=== PATIENT | female | born 1985 | race Caucasian/White ===

== ENCOUNTER 2021-01-26 07:13 | Emergency (ER) | payer OTHER ==
[2021-01-26] MEDS ORDERED: Lidocaine/EPINEPHrine/Tetracaine Soln 1 ML TOP ONE (07:33)
--- NOTE | 2021-01-26 07:37 | EDM.PDOC ---
ED HPI GENERAL MEDICAL PROBLEM - General Chief Complaint: Skin Complaint Stated Complaint: BUMP ON RIGHT EAR Time Seen by Provider: 01/26/21 07:35 - History of Present Illness INITIAL COMMENTS - FREE TEXT/NARRATIVE: History of present illness: [] The patient has recurrent abscess or cyst in the right upper earlobe. She saw a fire hydrant mechanic a few days ago and he incised it for the second time. It reaccumulated. It is worse and bigger each time its been in size. She sees ear nose and throat in about 6 days in [place] but the pain is excruciating and she is worried about damage to her ear. She has children who rest well and she is familiar with the concept of cauliflower ear. Review of systems: As per history of present illness and below otherwise all systems reviewed and negative. Past medical history: As per history of present illness and as reviewed below otherwise noncontributory. Surgical history: As per history of present illness and as reviewed below otherwise noncontributory. Social history: No reported history of drug or alcohol abuse. Family history: As per history of present illness and as reviewed below otherwise noncontributory. Physical exam: Constitutional - well developed, well-nourished and in no acute distress HEENT -patient has a fullness in the upper part of the right earlobe. It takes up 40% of the surface of the anterior ear. abscess or cyst in her right ear. The upper lobe is swollen and anatomy of the circular superior margin is distorted secondary to same.Otherwise normocephalic, no evidence of trauma - external nose and mouth normal - no mass in neck and no JVD - mucosae moist EYES - full EOM, PERRL, no icterus - no evidence of inflammation, injection, or drainage Respiratory - no respiratory distress, equal bilateral expansion Musculoskeletal no gross deformity of long bones or joints - no tenderness, swelling or edema Neurologic - Alert and oriented times four - CN II-XII grossly intact - motor sensory and coordination symmetrically normal Psychiatric - appropriate mood and affect with normal thought content Hematologic - No petechiae or purpura - mucosa appropriate color and sclera not pale - normal nail bed color and refill Integument - no rash or evidence of trauma - normal turgor Diagnostics: [] Therapeutics: [] Impression: [] Plan: [] Definitive disposition and diagnosis as appropriate pending reevaluation and review of above. Treatments OBJECTS CONSERVATOR: Reports: Acetaminophen right ear Pain Score (Numeric/FACES): 4 - Related Data Allergies Allergy/AdvReac Type Severity Reaction Status Date / Time No Known Allergies Allergy Verified 01/26/21 07:30 Home Meds: Home Meds Acetaminophen/oxyCODONE [Percocet 325-5 MG] 1 - 2 each PO Q4H PRN #10 tab 01/26/21 [Rx] Dextroamphetamine [Dexedrine] 01/26/21 [History] cephALEXin [Keflex] 500 mg PO BID #14 cap 01/26/21 [Rx] ED ROS GENERAL - Review of Systems Review Of Systems: Comprehensive ROS is negative, except as noted in HPI. ED EXAM, SKIN/RASH Exam: See Below Text/Narrative:: My physical exam is in the HPI ED SKIN PROCEDURES - I&D Site: ear Skin Prep: Providone-Iodine (Betadine) Local Anesthesia: Lidocaine: 1% Plain Local Anesthetic Volume: 3cc Area Incised With: 11 Blade Drainage: Clear, Bloody Probed to Break Up Loculations: No Packed With: Other Progress/Comments: Gauze placed in the earlobe and the back of the ear and wrapped and compressed. Course - Vital Signs Last Recorded V/S: Last Vital Signs Temp 36.4 C 01/26/21 07:27 Pulse 78 01/26/21 07:27 Resp 18 01/26/21 07:27 BP 121/61 01/26/21 07:27 Pulse Ox 97 01/26/21 07:27 - Orders/Labs/Meds Meds: Medications Discontinued Medications Generic Name Dose Route Start Last Admin Trade Name Fabi PRN Reason Stop Dose Admin Lidocaine HCl 5 ml 01/26/21 07:34 01/26/21 07:41 Lidocaine 1% 5 Ml Sdv INJECT 01/26/21 07:35 5 ml ONETIME ONE Administration Lidocaine/Tetracaine 1 ml 01/26/21 07:33 01/26/21 07:41 Lidocaine/Epinephrine/Tetracaine Soln 1 Ml TOP 01/26/21 07:34 1 ml ONETIME ONE Administration Departure - Departure Time of Disposition: 08:13 Disposition: Home, Self-Care 01 Condition: Good Clinical Impression: Abscess - Discharge Information Prescriptions: cephALEXin [Keflex] 500 mg PO BID #14 cap Acetaminophen/oxyCODONE [Percocet 325-5 MG] 1 - 2 each PO Q4H PRN #10 tab PRN Reason: Pain (Severe 7-10) Instructions: Skin Abscess Referrals: iKm Hunter DO [Primary Care Provider] - Vidal Phelps MD [Ordering Only Provider] - Forms: ED Department Discharge Additional Instructions: Try to keep some pressure on the earlobe so it does not reaccumulate fluid and compress the cartilage. See ENT as soon as possible. [facility] [address] [place] [id number] [id number] The following information is given to patients seen in the emergency department who are being discharged to home. This information is to outline your options for follow-up care. We provide all patients seen in our emergency department with a follow-up referral. The need for follow-up, as well as the timing and circumstances, are variable depending upon the specifics of your emergency department visit. If you don't have a primary care physician on staff, we will provide you with a referral. We always advise you to contact your personal physician following an emergency department visit to inform them of the circumstance of the visit and for follow-up with them and/or the need for any referrals to a consulting specialist. The emergency department will also refer you to a specialist when appropriate. This referral assures that you have the opportunity for follow-up care with a specialist. All of these measure are taken in an effort to provide you with optimal care, which includes your follow-up. Under all circumstances we always encourage you to contact your private physician who remains a resource for coordinating your care. When calling for follow-up care, please make the office aware that this follow-up is from your recent emergency room visit. If for any reason you are refused follow-up, please contact the [facility] Department at and asked to speak to the emergency department charge nurse. Sepsis Event Note (ED) - Evaluation Sepsis Screening Result: No Definite Risk - Focused Exam Vital Signs: Vital Signs Temp Pulse Resp BP Pulse Ox 01/26/21 07:27 36.4 C 78 18 121/61 97
== END 2021-01-26 08:35 | disposition home or self-care (01) ==
LOC: MW.ED 07:13
DX: H66.41 Suppurative otitis media, unspecified, right ear (principal)
CPT/HCPCS: 10060; 99283-25

== ENCOUNTER 2022-08-23 08:19 | Day surgery (SDC) | payer OTHER ==
[~2022-08-23 08:19] MED LIST: Albuterol 0.083% 2.5 MG/3 ML Neb Soln NEB PRN; HYDROmorphone 1 MG/ML Syringe IVPUSH PRN; Lactated Ringers 1,000 ML IV SCH; Metoclopramide 10 MG/2 ML SDV IVPUSH PRN; Morphine 2 MG/ML SYRINGE IVPUSH PRN; Naloxone 0.4 MG/ML SDV IVPUSH PRN; Ondansetron 4 MG/2 ML SDV IVPUSH PRN; fentaNYL 50 MCG/ML SDV IVPUSH PRN
[2022-08-23] MEDS ORDERED: Lidocaine 2% 11 ML Jelly Filled Syringe ONE (08:57)
[2022-08-23] MEDS ORDERED: Lidocaine 2% 5 ML SDV ONE (08:57)
[2022-08-23] MEDS ORDERED: Propofol 200 MG/20 ML SDV ONE (08:57)
[2022-08-23] MEDS ORDERED: fentaNYL 100 MCG/2 ML SDV ONE (08:57)
[2022-08-23] MEDS ORDERED: Ketorolac 30 MG/ML SDV ONE (08:57)
[2022-08-23] MEDS ORDERED: Ondansetron 4 MG/2 ML SDV ONE (08:57)
[2022-08-23] MEDS ORDERED: Dexamethasone 4 MG/ML 5 ML MDV ONE (08:57)
[2022-08-23 09:16] LABS: CARBON DIOXIDE,CO2 28.7 mmol/L (21.0-32.0)
== END 2022-08-23 11:00 | disposition home or self-care (01) ==
LOC: MW.SDS 08:19
PROVIDERS: ATTEND Obstetrics & Gynecology
DX: N92.0 Excessive and frequent menstruation with regular cycle (principal); N88.2 Stricture and stenosis of cervix uteri; E66.9 Obesity, unspecified; F17.290 Nicotine dependence, other tobacco product, uncomplicated; Z68.33 Body mass index [BMI] 33.0-33.9, adult; Z79.899 Other long term (current) drug therapy; Z98.890 Other specified postprocedural states
CPT/HCPCS: 36415; 58563; 80053; 81025; 85027; A9270; J0131; J1100; J1885; J2405; J2704; J3010; J7120; J3490

== ENCOUNTER 2022-10-03 08:02 | Day surgery (SDC) | payer OTHER ==
[2022-10-03] MEDS: Lactated Ringers 1,000 ML IV SCH ×2 (08:30→14:59)
[2022-10-03] MEDS ORDERED: Ondansetron 4 MG/2 ML SDV IVPUSH PRN ×2 (09:00→13:17)
[2022-10-03] MEDS ORDERED: Morphine 2 MG/ML SYRINGE IVPUSH PRN (09:00)
[2022-10-03] MEDS ORDERED: Metoclopramide 10 MG/2 ML SDV IVPUSH PRN (09:00)
[2022-10-03] MEDS ORDERED: fentaNYL 50 MCG/ML SDV IVPUSH PRN (09:00)
[2022-10-03] MEDS ORDERED: Albuterol 0.083% 2.5 MG/3 ML Neb Soln NEB PRN (09:00)
[2022-10-03] MEDS ORDERED: Naloxone 0.4 MG/ML SDV IVPUSH PRN (09:00)
[2022-10-03] MEDS ORDERED: Scopolamine 1.5 MG Transdermal Patch ONE (09:01)
[2022-10-03 09:21] LABS: POTASSIUM,K 4.4 mmol/L (3.5-5.1)
[2022-10-03 09:35] LABS: CARBON DIOXIDE,CO2 26.2 mmol/L (21.0-32.0)
[2022-10-03] MEDS ORDERED: propofoL 100 ML ONE (10:21)
[2022-10-03] MEDS ORDERED: fentaNYL 100 MCG/2 ML SDV ONE (10:34)
[2022-10-03] MEDS ORDERED: Bupivacaine 0.25% 30 ML SDV ONE (10:43)
[2022-10-03] MEDS ORDERED: Methylene Blue 50 MG/10 ML Ampule ONE (10:43)
[2022-10-03] MEDS ORDERED: Magnesium Sulfate (4.06 MEQ/ML) 5 GM/10 ML SDV ONE (11:20)
[2022-10-03] MEDS ORDERED: Ondansetron 4 MG/2 ML SDV ONE (12:06)
[2022-10-03] MEDS ORDERED: Dexmedetomidine 200 MCG/2 ML SDV ONE (12:06)
[2022-10-03] MEDS ORDERED: Sugammadex Sodium 200 MG/2 ML VIAL ONE (12:06)
[2022-10-03] MEDS ORDERED: Ketorolac 30 MG/ML SDV ONE (12:06)
[2022-10-03] MEDS ORDERED: Lidocaine 2% 5 ML SDV ONE (12:06)
[2022-10-03] MEDS ORDERED: Dexamethasone 4 MG/ML 5 ML MDV ONE (12:06)
[2022-10-03] MEDS ORDERED: Rocuronium Bromide 50 MG/5 ML Syringe ONE (12:10)
[2022-10-03] MEDS ORDERED: Fluorescein 5 ML Vial ONE (12:10)
[2022-10-03] MEDS ORDERED: Bupivacaine 25%/EPINEPHrine/PF 30 ML ONE (12:14)
[2022-10-03] MEDS ORDERED: Ropivacaine 0.5% 5 MG/ML 30 ML SDV ONE (12:57)
[2022-10-03] MEDS ORDERED: Morphine 4 MG/ML Syringe IVPUSH PRN (13:17)
[2022-10-03] MEDS ORDERED: Acetaminophen/oxyCODONE 325-5 MG Tab PO PRN (13:17)
[2022-10-03] MEDS ORDERED: Ketorolac 30 MG/ML SDV IVPUSH PRN (13:17)
[2022-10-03] MEDS ORDERED: Promethazine 25 MG/ML SDV IM PRN (13:17)
[2022-10-03] MEDS: HYDROmorphone 1 MG/ML Syringe IVPUSH PRN ×2 (13:39→13:59)
[2022-10-03] MEDS: Acetaminophen/oxyCODONE 325-5 MG Tab PO PRN ×2 (15:23→20:28)
[2022-10-04] MEDS: Acetaminophen/oxyCODONE 325-5 MG Tab PO PRN ×2 (00:25→06:39)
[2022-10-04 06:51] LABS: CARBON DIOXIDE,CO2 26.8 mmol/L (21.0-32.0); POTASSIUM,K 3.8 mmol/L (3.5-5.1)
== END 2022-10-04 11:00 | disposition home or self-care (01) ==
LOC: MW.MS 08:02 → MW.SDS 08:02 → MW.MS 09:30 → MW.SDS 10-04 11:00
PROVIDERS: ATTEND Obstetrics & Gynecology
DX: D25.2 Subserosal leiomyoma of uterus (principal); N72 Inflammatory disease of cervix uteri; D25.1 Intramural leiomyoma of uterus; Z87.891 Personal history of nicotine dependence; F17.290 Nicotine dependence, other tobacco product, uncomplicated; Z20.822 Contact with and (suspected) exposure to COVID-19
CPT/HCPCS: 36415; 58552; 80053; 84703; 85025; 85027; 86850; 86900; 86901; 87635; A9270; J0131; J1100; J1170; J1885; J2704; J2795; J3010; J3475; J3490; J7120; J2405; U0002

== ENCOUNTER 2022-12-26 12:24 | Emergency (ER) | payer OTHER ==
[2022-12-26] MEDS ORDERED: Acetaminophen 325 MG Tab PO ONE (13:33)
== END 2022-12-26 14:46 | disposition home or self-care (01) ==
LOC: MW.ED 12:24
DX: S13.4XXA Sprain of ligaments of cervical spine, initial encounter (principal); E66.9 Obesity, unspecified; V89.2XXA Person injured in unspecified motor-vehicle accident, traffic, initial encounter; Y92.410 Unspecified street and highway as the place of occurrence of the external cause; Z68.33 Body mass index [BMI] 33.0-33.9, adult
CPT/HCPCS: 99284; A9270; 99283